=== PATIENT | male | born 1995 | race Caucasian/White ===

== ENCOUNTER 2016-08-10 14:04 | Observation (INO) | payer BC ==
[~2016-08-10] VITALS: Ht 190.5 cm; Wt 80.9 kg
[2016-08-10] MEDS ORDERED: SODIUM CHLORIDE 0.9% 1000ML 1,000 ML IV STA ×2 (14:28)
[2016-08-10] MEDS ORDERED: ONDANSETRON INJ 2 MG/ML 2 ML VIAL IV STA ×2 (14:28→15:30)
[2016-08-10] MEDS: MoRPHine SULFATE 4 MG/ML 1 ML CARP\\VIAL IV PRN ×3 (14:35→16:08)
[2016-08-10 14:37] LABS: BASO % 0.1 %; BASO ABS # 0.01 K/uL (0-0.2); COMPLETE YES; EOS % 0.7 %; HEMATOCRIT 44.1 % (42-52); IG% 0.1 %; LYMPH % 11.1 %; LYMPH ABS # 0.83 K/uL (1.2-3.4); MEAN CELL VOLUME 86.5 fL (80-100); MEAN CORPUSCULAR HEMOGLOBIN 30.4 pg (25-34); MEAN CORPUSCULAR HGB CONC 35.1 g/dl (32-36); MEAN PLATELET VOLUME 9.9 fL (7.4-10.4); PLATELET COUNT 132 K/uL (130-400); WHITE BLOOD COUNT 7.45 K/uL (4.8-10.8)
--- NOTE | 2016-08-10 14:38 | EMERGENCY ROOM VISIT NOTE ---
History Report prepared by Shelbi: Génesis Forrester Under the Supervision of: Dr. Franko Wall D.O. First contact with patient: 14:26 Chief Complaint: ABDOMINAL PAIN Stated Complaint: STOMACH R/O APPENDIX Nursing Triage Summary: Pt presents with lower abd pain that began last night, diaphoretic, n/v. Denies back pain. History of Present Illness The patient is a 21 year old male who presents to the Emergency Room with complaints of abdominal pain. The patient states that he had abdominal pain which began last evening. His pain has slowly become worsen. It is now constant. It is located in the lower abdomen. He also admits having nausea and vomiting. He denies having any diarrhea or fevers. He stopped [facility] initially and was sent to the emergency department for further workup. The patient states his pain is very severe and worsened with any movement. He denies any rectal bleeding or hematemesis. He denies any testicular pain or constipation. He has not had similar pain to this in the past. Source of History: patient Onset: last night Position: abdomen (lower) Timing: constant Modifying Factors (Worsening): movement Associated Symptoms: + nausea, + vomiting, No diarrhea, No fevers Review of Systems See HPI for pertinent positives & negatives. A total of 10 systems reviewed and were otherwise negative. Past Medical & Surgical Medical Problems: (1) No Known Active Medical Problems Family History Patient reports no known family medical history. Social History Smoking Status: Never Smoker Smokeless Tobacco Use: No Alcohol Use: occasionally Marital Status: single Housing Status: lives with roommate Occupation Status: [employer] student Current/Historical Medications Scheduled Calcium Carbonate (Tums), 1-2 TABS PO PRN Allergies Coded Allergies: No Known Allergies (Unverified , 08/10/16) Physical Exam Vital Signs Date Time Temp Pulse Resp B/P Pulse Ox O2 Delivery O2 Flow Rate FiO2 08/10/16 17:26 77 16 148/86 97 08/10/16 16:09 74 16 141/82 100 08/10/16 15:20 63 16 122/70 100 08/10/16 15:19 83 08/10/16 14:09 36.5 77 18 154/85 95 Room Air Physical Exam GENERAL: Patient is awake and alert. He is very anxious and uncomfortable appearing EYES: The conjunctivae are clear. The pupils are round and reactive. EARS, NOSE, MOUTH AND THROAT: The nose is without any evidence of any deformity. Mucous membranes are moist tongue is midline NECK: The neck is nontender and supple. RESPIRATORY: Normal respiratory effort is noted there is no evidence of wheezing rhonchi or rales CARDIOVASCULAR: Regular rate and rhythm noted there no murmurs rubs or gallops normal S1 normal S2 GASTROINTESTINAL: The abdomen is mildly distended. He is diffusely tender in the abdomen with guarding in the right and left lower quadrant. BACK: No midline tenderness or or step-off noted range of motion in flexion extension as well as rotation no signs of muscle spasm noted MUSCULOSKELETAL/EXTREMITIES: There is no evidence of gross deformity full range of motion is noted in the hips and shoulders SKIN: There is no obvious evidence of any rash. Skin is cold and Diaphoretic. There is no edema. NEUROLOGIC: Patient is awake alert and oriented x3. Medical Decision & Procedures ER Provider Diagnostic Interpretation: Radiology results as stated below per my review and radiologist interpretation: CHEST ONE VIEW PORTABLE CLINICAL HISTORY: Abdominal pain and nausea. COMPARISON STUDY: No previous studies for comparison. FINDINGS: Lung volumes are normal. Lungs are clear. There is no pneumothorax or pleural effusion. Cardiac size is normal. Mediastinal contours are normal. There is no evidence of pulmonary edema. IMPRESSION: No acute cardiopulmonary findings. Electronically signed by: Sai Milan M.D. 08/10/2016 2:51 PM Dictated Date/Time: 08/10/2016 2:[address] SCAN OF THE ABDOMEN AND PELVIS WITH IV CONTRAST CLINICAL HISTORY: Vomiting. Lower abdominal pain. COMPARISON STUDY: No priors. TECHNIQUE: Following the IV administration of 116 cc of Optiray 320, CT scan of the abdomen and pelvis is performed from the lung bases to the proximal femora. Images are reviewed in the axial, sagittal, and coronal planes. IV contrast was administered without complication. Automated dose control exposure was utilized. CT DOSE: 284.43 mGy.cm FINDINGS: Lung bases: The heart is normal in size and without pericardial effusion. The lung bases are clear. Liver: The contrast-enhanced liver is normal in size, contour, and attenuation. There is no intrahepatic biliary ductal dilatation. The hepatic veins and portal veins are patent. Gallbladder: Unremarkable. Spleen: The spleen is enlarged, measuring 17.4 cm in length. Pancreas: Unremarkable. Adrenal glands: Unremarkable. Kidneys: The contrast enhanced kidneys are normal in size and without hydronephrosis. The kidneys enhance symmetrically. Abdominal vasculature: The abdominal aorta is normal in course and caliber. Bowel: The small bowel and colon are normal in course and caliber. The appendix is identified in the right lower quadrant above the bladder. The appendix is dilated and fluid-filled measuring up to 1.6 cm in diameter. There are several appendicoliths identified. The largest is seen on image #321. The appearance is consistent with acute appendicitis. Peritoneum: There is free fluid in the pelvis. No intraperitoneal free air is seen. There is a small fat-containing umbilical hernia. Lymphadenopathy: None. Pelvic viscera: The bladder, prostate, and seminal vesicles are normal as visualized. Skeletal structures: No lytic or blastic lesions are seen. IMPRESSION: 1. Findings are consistent with acute appendicitis. Surgical consultation is advised. There is no evidence of intraperitoneal free air or abscess. 2. There is a moderate volume of free fluid in the pelvis. 3. Marked splenomegaly. Electronically signed by: Jeremie Salinas M.D. 08/10/2016 3:55 PM Dictated Date/Time: 08/10/2016 3:50 PM Laboratory Results 08/10/16 14:25 Red Blood Count 5.10, Mean Corpuscular Volume 86.5, Mean Corpuscular Hemoglobin 30.4, Mean Corpuscular Hemoglobin Concent 35.1, Mean Platelet Volume 9.9, Neutrophils (%) (Auto) 81.0, Lymphocytes (%) (Auto) 11.1, Monocytes (%) (Auto) 7.0, Eosinophils (%) (Auto) 0.7, Basophils (%) (Auto) 0.1, Neutrophils # (Auto) 6.03, Lymphocytes # (Auto) 0.83, Monocytes # (Auto) 0.52, Eosinophils # (Auto) 0.05, Basophils # (Auto) 0.01 08/10/16 14:25 Test 08/10/16 14:25 White Blood Count 7.45 K/uL (4.8-10.8) Red Blood Count 5.10 M/uL (4.7-6.1) Hemoglobin 15.5 g/dL (14.0-18.0) Hematocrit 44.1 % (42-52) Mean Corpuscular Volume 86.5 fL (80-100) Mean Corpuscular Hemoglobin 30.4 pg (25-34) Mean Corpuscular Hemoglobin Concent 35.1 g/dl (32-36) Platelet Count 132 K/uL (130-400) Mean Platelet Volume 9.9 fL (7.4-10.4) Neutrophils (%) (Auto) 81.0 % Lymphocytes (%) (Auto) 11.1 % Monocytes (%) (Auto) 7.0 % Eosinophils (%) (Auto) 0.7 % Basophils (%) (Auto) 0.1 % Neutrophils # (Auto) 6.03 K/uL (1.4-6.5) Lymphocytes # (Auto) 0.83 K/uL (1.2-3.4) Monocytes # (Auto) 0.52 K/uL (0.11-0.59) Eosinophils # (Auto) 0.05 K/uL (0-0.5) Basophils # (Auto) 0.01 K/uL (0-0.2) RDW Standard Deviation 39.1 fL (36.4-46.3) RDW Coefficient of Variation 12.3 % (11.5-14.5) Immature Granulocyte % (Auto) 0.1 % Immature Granulocyte # (Auto) 0.01 K/uL (0.00-0.02) Anion Gap 7.0 mmol/L (3-11) Est Creatinine Clear Calc Drug Dose 133.7 ml/min Estimated GFR () 124.1 Estimated GFR (Non- 107.1 BUN/Creatinine Ratio 9.0 (10-20) Calcium Level 9.4 mg/dl (8.5-10.1) Total Bilirubin 0.7 mg/dl (0.2-1) Direct Bilirubin 0.2 mg/dl (0-0.2) Aspartate Amino Transf (AST/SGOT) 24 U/L (15-37) Alanine Aminotransferase (ALT/SGPT) 30 U/L (12-78) Alkaline Phosphatase 76 U/L (45-117) Total Protein 8.2 gm/dl (6.4-8.2) Albumin 4.1 gm/dl (3.4-5.0) Lipase 154 U/L (73-393) Laboratory results per my review. Medications Administered Medications (Trade) Dose Ordered Sig/Bairon Route Start Time Stop Time Status Last Admin Dose Admin Morphine Sulfate (MoRPHine SULFATE INJ) 4 mg Q15M PRN IV 08/10/16 14:30 08/24/16 14:29 08/10/16 16:08 4 MG Ondansetron HCl 4 mg 4 mg NOW STAT IV 08/10/16 14:28 08/10/16 14:29 DC 08/10/16 14:35 4 MG Sodium Chloride 1,000 ml @ 999 mls/hr Q1H1M STAT IV 08/10/16 14:28 08/10/16 15:28 DC 08/10/16 14:28 999 MLS/HR Sodium Chloride (Nss 1000ml) 1,000 ml @ 250 mls/hr Q4H STAT IV 08/10/16 14:28 08/10/16 18:27 08/10/16 15:21 250 MLS/HR Ondansetron HCl (Zofran Inj) 4 mg NOW STAT IV 08/10/16 15:30 08/10/16 15:31 DC 08/10/16 15:32 4 MG ED Course 1426: The patient was evaluated in room A10. A complete history and physical examination were performed. 1428: Sodium Chloride 1,000 ml @ 250 mls/hr IV, Sodium Chloride 1,000 ml @ 999 mls/hr IV, Zofran Inj 4 mg IV, Morphine Sulfate Inj 4 mg IV. 1530: Zofran Inj 4 mg IV. 1601: I discussed the test results with the patient. 1607: I discussed the patient's case with MARY Mcnair - [facility]. The patient will be evaluated for further management. 1629: I reevaluated the patient and discussed the plan for evaluation from the surgeon. 1645: Upon reevaluation, the patient is hemodynamically stable. I discussed results and treatment plan with the patient. He verbalizes agreement and understanding. I spoke with MARY Mcnair of the [facility]. The patient will be evaluated for further management and care. 1716: Promethazine HCl 12.5 mg/ Sodium Chloride 50.5 ml @ 204 mls/hr IV. Medical Decision Prior records/ancillary studies reviewed. Triage Nursing notes reviewed. The patient's history was concerning for abdominal pain. Differential diagnosis: Etiologies such as appendicitis, diverticulitis, PUD, biliary pathology, UTI, pancreatitis, obstruction, mesenteric ischemia, aortic pathology, infections, inflammatory bowel disease, renal colic, as well as others were entertained. The patient is a 21-year-old male who presented to the emergency department for an evaluation of lower abdominal pain. The patient's physical exam appeared to be consistent with an acute surgical abdomen. His white blood cell count was not elevated but he had very significant nausea and vomiting. A CAT scan the abdomen and pelvis was ordered with IV and by mouth contrast but he was not able to tolerate the by mouth contrast. For this reason a CT was changed to only IV contrast. The patient was found have acute appendicitis on CT. I discussed the patient's laboratory and radiographic studies with him. He was treated with IV fluids IV pain medication and IV antiemetics. I discussed his case with the on-call surgical group. They've agreed to evaluate the patient in the emergency department for further management and disposition. Consults Time Called: 1601 Consulting Physician: Maddi Mcnair General Surgery MARY Returned Call: 1607 I discussed the patient's case with MARY Mcnair - [facility]. The patient will be evaluated for further management. Impression Primary Impression: Acute appendicitis Additional Impression: Right lower quadrant abdominal pain Scribe Attestation The scribe's documentation has been prepared under my direction and personally reviewed by me in its entirety. I confirm that the note above accurately reflects all work, treatment, procedures, and medical decision making performed by me. Departure Information Dispostion Being Evaluated By Hospitalist Referrals No Doctor, Assigned (PCP) Problem Qualifiers
[2016-08-10] MEDS ORDERED: OPTIRAY 320 IV PRN (14:45)
--- NOTE | 2016-08-10 14:53 | DIAGNOSTIC IMAGING REPORT ---
CHEST ONE VIEW PORTABLE CLINICAL HISTORY: Abdominal pain and nausea. COMPARISON STUDY: No previous studies for comparison. FINDINGS: Lung volumes are normal. Lungs are clear. There is no pneumothorax or pleural effusion. Cardiac size is normal. Mediastinal contours are normal. There is no evidence of pulmonary edema. IMPRESSION: No acute cardiopulmonary findings. Electronically signed by: Sai Milan M.D. 08/10/2016 2:51 PM Dictated Date/Time: 08/10/2016 2:49 PM
[2016-08-10 14:56] LABS: CALCIUM 9.4 mg/dl (8.5-10.1); POTASSIUM 3.5 mmol/L (3.5-5.1)
[2016-08-10] MEDS ORDERED: CALC500C3 PO (15:42)
--- NOTE | 2016-08-10 15:56 | DIAGNOSTIC IMAGING REPORT ---
CT SCAN OF THE ABDOMEN AND PELVIS WITH IV CONTRAST CLINICAL HISTORY: Vomiting. Lower abdominal pain. COMPARISON STUDY: No priors. TECHNIQUE: Following the IV administration of 116 cc of Optiray 320, CT scan of the abdomen and pelvis is performed from the lung bases to the proximal femora. Images are reviewed in the axial, sagittal, and coronal planes. IV contrast was administered without complication. Automated dose control exposure was utilized. CT DOSE: 284.43 mGy.cm FINDINGS: Lung bases: The heart is normal in size and without pericardial effusion. The lung bases are clear. Liver: The contrast-enhanced liver is normal in size, contour, and attenuation. There is no intrahepatic biliary ductal dilatation. The hepatic veins and portal veins are patent. Gallbladder: Unremarkable. Spleen: The spleen is enlarged, measuring 17.4 cm in length. Pancreas: Unremarkable. Adrenal glands: Unremarkable. Kidneys: The contrast enhanced kidneys are normal in size and without hydronephrosis. The kidneys enhance symmetrically. Abdominal vasculature: The abdominal aorta is normal in course and caliber. Bowel: The small bowel and colon are normal in course and caliber. The appendix is identified in the right lower quadrant above the bladder. The appendix is dilated and fluid-filled measuring up to 1.6 cm in diameter. There are several appendicoliths identified. The largest is seen on image #321. The appearance is consistent with acute appendicitis. Peritoneum: There is free fluid in the pelvis. No intraperitoneal free air is seen. There is a small fat-containing umbilical hernia. Lymphadenopathy: None. Pelvic viscera: The bladder, prostate, and seminal vesicles are normal as visualized. Skeletal structures: No lytic or blastic lesions are seen. IMPRESSION: 1. Findings are consistent with acute appendicitis. Surgical consultation is advised. There is no evidence of intraperitoneal free air or abscess. 2. There is a moderate volume of free fluid in the pelvis. 3. Marked splenomegaly. Electronically signed by: Jeremie Salinas M.D. 08/10/2016 3:55 PM Dictated Date/Time: 08/10/2016 3:50 PM
--- NOTE | 2016-08-10 16:51 | History and Physical: Surg Cnt ---
History & Physical Date Aug 10, 2016. Chief Complaint Abdominal pain, nausea, vomiting History of Present Illness The patient is a 21 year old male who presented to emergency department via taxi cab from [facility] complaining of abdominal pain, nausea, and vomiting that began last evening. States he was in his usual state of health when the abdominal pain (lower abdomen) started last evening and did not improve. Nausea and vomiting started this morning. Had some associated cold chills but no fever. States he has never had this type of pain before. No changes in bowel habits, has not had a bowel movement in 24 hours. Denies of any previous abdominal surgeries. Past Medical/Surgical History Medical Problems: (1) No Known Active Medical Problems Additional History Hepatic Disease: No Endocrine Disorder: No Kidney Disease: No Hypertension: No Heart Disease: No Bleeding Tendencies: No Infectious Diseases: No Allergies Coded Allergies: No Known Allergies (Unverified , 08/10/16) Home Medications Scheduled Calcium Carbonate (Tums), 1-2 TABS PO PRN Physical Examination Skin: warm/dry, no rash Eyes: sclerae normal Head: normocephalic, atraumatic Neck: trachea midline Respiratory/Chest: lungs clear, normal breath sounds, no respiratory distress Cardiovascular: regular rate, rhythm, no murmur Abdomen / GI: normal bowel sounds, + pertinent finding (+tenderness to palpation in the lower abdomen, + McBurneys point. No rigidity. + involuntary and voluntary guardin gin the RLQ) Back: normal inspection Extremities: normal inspection Neurologic/Psych: alert, oriented x [address] SCAN OF THE ABDOMEN AND PELVIS WITH IV CONTRAST CLINICAL HISTORY: Vomiting. Lower abdominal pain. COMPARISON STUDY: No priors. TECHNIQUE: Following the IV administration of 116 cc of Optiray 320, CT scan of the abdomen and pelvis is performed from the lung bases to the proximal femora. Images are reviewed in the axial, sagittal, and coronal planes. IV contrast was administered without complication. Automated dose control exposure was utilized. CT DOSE: 284.43 mGy.cm FINDINGS: Lung bases: The heart is normal in size and without pericardial effusion. The lung bases are clear. Liver: The contrast-enhanced liver is normal in size, contour, and attenuation. There is no intrahepatic biliary ductal dilatation. The hepatic veins and portal veins are patent. Gallbladder: Unremarkable. Spleen: The spleen is enlarged, measuring 17.4 cm in length. Pancreas: Unremarkable. Adrenal glands: Unremarkable. Kidneys: The contrast enhanced kidneys are normal in size and without hydronephrosis. The kidneys enhance symmetrically. Abdominal vasculature: The abdominal aorta is normal in course and caliber. Bowel: The small bowel and colon are normal in course and caliber. The appendix is identified in the right lower quadrant above the bladder. The appendix is dilated and fluid-filled measuring up to 1.6 cm in diameter. There are several appendicoliths identified. The largest is seen on image #321. The appearance is consistent with acute appendicitis. Peritoneum: There is free fluid in the pelvis. No intraperitoneal free air is seen. There is a small fat-containing umbilical hernia. Lymphadenopathy: None. Pelvic viscera: The bladder, prostate, and seminal vesicles are normal as visualized. Skeletal structures: No lytic or blastic lesions are seen. IMPRESSION: 1. Findings are consistent with acute appendicitis. Surgical consultation is advised. There is no evidence of intraperitoneal free air or abscess. 2. There is a moderate volume of free fluid in the pelvis. 3. Marked splenomegaly. Acute Appendicitis with Appendicoliths - afebrile - no leukocytosis - +n/v - CT scan showing dilated appendix measuring 1.6 cm Plan: Plan to take patient to operating room for laparoscopic appendectomy possible open Informed patient of procedure and risks including bleeding, infection, injury to surrounding organs tissues, cardiopulmonary complication, and blood clots. Patient understood and informed consent obtained Continue IV fluids Will be given IV antibiotics pre-op Will be admitted to med/surg floor post op I have discussed this patient with Dr. Bee who is in agreement with the above stated findings and treatment plan. Will evaluate patient directly pre- operatively.
[2016-08-10] MEDS ORDERED: PROMETHAZINE HCL INJ 12.5 MG in SODIUM CHLORIDE 0.9% 50ML 50 ML IV STA (17:16)
[2016-08-10] MEDS ORDERED: CEFOXITIN SOD 2 GM VIAL IV STA (17:56)
[2016-08-10] MEDS ORDERED: ONDANSETRON INJ 2 MG/ML 2 ML VIAL ONE (17:59)
[2016-08-10] MEDS ORDERED: ROCURONIUM BROMIDE 10 MG/ML 5 ML VIAL ONE (17:59)
[2016-08-10] MEDS ORDERED: DEXAMETHASONE SOD INJ 4 MG/ML VIAL ONE (17:59)
[2016-08-10] MEDS ORDERED: LIDOCAINE HCL 2% 2 ML VIAL (20MG/ML) ONE (17:59)
[2016-08-10] MEDS ORDERED: GLYCOPYRROLATE INJ 0.2 MG/ML VIAL ONE (17:59)
[2016-08-10] MEDS ORDERED: NEOSTIGMINE METHYLSULFATE 5 MG/5 ML SYR ONE (17:59)
[2016-08-10] MEDS ORDERED: PROPOFOL IV EMULSION 10 MG/ML 20 ML VIAL IV ONE (17:59)
[2016-08-10] MEDS ORDERED: MIDAZOLAM HCL 1 MG/ML 2ML VIAL ONE (18:00)
[2016-08-10] MEDS ORDERED: FENTANYL CITRATE INJ 50 MCG/1 ML 2 ML VIAL ONE ×2 (18:00→18:39)
[2016-08-10] MEDS ORDERED: BACITRACIN OINT 15 GM TUBE ONE (18:12)
[2016-08-10] MEDS ORDERED: BUPIVACAINE 0.5 % 5 MG/1 ML MPF 30ML VIAL ONE (18:12)
[2016-08-10] MEDS ORDERED: LIDOCAINE HCL 1% 20 ML VIAL ONE (18:12)
[2016-08-10] MEDS ORDERED: CEFOXITIN IV 2,000 MG in DEXTROSE 5% 50ML 50 ML IV SCH (18:15)
--- NOTE | 2016-08-10 18:25 | History & Physical Bridge Note ---
H&P Re-Evaluation Bridge Note: I have examined the patient, reviewed the History & Physical and in the interval since the performance of the History & Physical I have noted the following changes of clinical significance: No changes noted
[2016-08-10] MEDS ORDERED: EpHEDrine SULFATE INJ 50 MG/ML AMP IV PRN (18:45)
[2016-08-10] MEDS ORDERED: ATROPINE SULFATE 0.1 MG/ML 5ML SYR IV PRN (18:45)
[2016-08-10] MEDS ORDERED: HYDROmorphone INJ 1 MG/ML SYR IV PRN (18:45)
[2016-08-10] MEDS ORDERED: FENTANYL CITRATE INJ 50 MCG/1 ML 2 ML VIAL IV PRN (18:45)
[2016-08-10] MEDS ORDERED: DiphenhydrAMINE HCL 50 MG/ML VIAL ONE (18:45)
[2016-08-10] MEDS ORDERED: ONDANSETRON INJ 2 MG/ML 2 ML VIAL IV PRN (18:45)
[2016-08-10] MEDS ORDERED: SUCCINYLCHOLINE CHLORIDE 20 MG/ML 10 ML VIAL IV ONE (19:12)
--- NOTE | 2016-08-10 19:30 | [facility] Post Operative Brief Note ---
Immediate Operative Summary Operative Date Aug 10, 2016. Pre-Operative Diagnosis Acute Appendicitis Post-Operative Diagnosis Acute Appendicitis Procedure(s) Performed Laparoscopic Appendectomy Surgeon Dr. Bee [employer] Principal Surgeon(s) None Estimated Blood Loss 10ml Findings acute appendicitis Fluids (cc crystalloids) 600ml Specimens A. Appendix Drains none Anesthesia general Complication(s) None Disposition Recovery Room / PACU
[2016-08-10] MEDS ORDERED: HYDROmorphone INJ 0.5 MG/0.5 ML SYR IV PRN (19:45)
--- NOTE | 2016-08-10 20:13 | Anesthesiology Progress Note ---
Anesthesia Post Op Note Date & Time Aug 10, 2016 at 20:13 Vital Signs Pain Intensity: 1 Vital Signs Past 12 Hours Date Time Temp Pulse Resp B/P Pulse Ox O2 Delivery O2 Flow Rate FiO2 08/10/16 20:10 36.5 54 16 128/67 100 Room Air 08/10/16 20:00 53 16 132/67 100 Room Air 08/10/16 19:50 55 16 126/70 100 Mask 10 08/10/16 19:40 61 16 133/77 100 Mask 10 08/10/16 19:30 36.3 60 16 128/68 100 Mask 10 08/10/16 18:00 36.7 85 16 136/77 100 Room Air 08/10/16 17:26 77 16 148/86 97 08/10/16 16:09 74 16 141/82 100 08/10/16 15:20 63 16 122/70 100 08/10/16 15:19 83 08/10/16 14:09 36.5 77 18 154/85 95 Room Air Notes Mental Status: alert / awake / arousable, participated in evaluation Pt Amnestic to Procedure: Yes Nausea / Vomiting: adequately controlled Pain: adequately controlled Airway Patency, RR, SpO2: stable & adequate BP & HR: stable & adequate Hydration State: stable & adequate Anesthetic Complications: no major complications apparent
[2016-08-10 20:20] VITALS: BP 124/69; PULSE 56; TEMP 36.8; O2SAT 99; Ht 190.5 cm; Wt 80.9 kg
[2016-08-10] MEDS ORDERED: IV FLUIDS COMPLETED PRN (20:30)
[2016-08-10 20:50] VITALS: BP 115/63; PULSE 56; TEMP 36.7; O2SAT 99
[2016-08-10] MEDS: D5W AND 1/2NSS + 20MEQ KCL 1,000 ML IV SCH (21:27)
[2016-08-10] MEDS: CEFTRIAXONE SOD INJ 1 GM in DEXTROSE 5% ADD-VANTAGE 50ML 50 ML IV SCH (21:27)
[2016-08-10 22:24] VITALS: BP 129/73; PULSE 70; TEMP 36.4; O2SAT 99
[2016-08-10 23:20] VITALS: BP 121/63; PULSE 67; TEMP 36.8; O2SAT 97
--- NOTE | 2016-08-10 23:43 | OPERATIVE REPORT ---
DATE OF OPERATION: 08/10/2016 PREOPERATIVE DIAGNOSIS: Acute appendicitis. POSTOPERATIVE DIAGNOSIS: Same. PROCEDURE: Laparoscopic appendectomy. SURGEON: Dr. Vania Bee. ANESTHESIA: General. ESTIMATED BLOOD LOSS: About 10 mL FINDINGS: Acute appendicitis. COMPLICATIONS: None. INDICATIONS FOR THE PROCEDURE: This is a 21-year-old gentleman who presented to the ED with 1 day history of right lower quadrant pain. The patient had a CT scan confirmed. The patient has a diagnosis of acute appendicitis. The patient will be required to undergo laparoscopic appendectomy, possible open. I did talk to the patient about the benefits, risks, and alternate procedure. I indicated the risks may include but not limited such as bleeding, infection, abscess, incisional hernia, injury to bowel, and even . The patient understands. He signed informed consent and I answered all questions. DETAILS OF PROCEDURE: We brought the patient to the OR, put the patient in supine position. The patient received SCDs on bilateral legs to prevent DVT. Also, the patient received 2 grams cefoxitin IV for prophylactic antibiotic. The patient received general anesthesia without difficulty. The abdomen was prepped and draped in routine sterile fashion. After timeout, I injected local anesthesia just above umbilicus by using 1% lidocaine mixed with 0.25% Marcaine. Then, I made a small incision just above the umbilicus, opened the fascia, opened the peritoneum under direct vision. I put a Jamil trocar in, connected to CO2 to create pneumoperitoneum, flow rate at 6 liter per minute, pressure not more than 14 mmHg. Once we got a nice pneumoperitoneum, we put two 5 mm trocars on the left side lower quadrant. All trocars were put in under direct vision with 10 mm camera. Then, we looked around the abdomen, showed normal findings of the stomach, small-bowel, large bowel, and liver. However, the appendix had significant inflammation, edema, swollen. The diagnosis is correct for acute appendicitis. Once all trocars were in, I put a grasper in to hold the appendix and used Harmonic to take down appendicocele, rechecked, no active bleeding. Then, I passed 45 Endo-MARIN stapler, transected at the base of the appendix, rechecked, no active bleeding, no leak. Then, we removed the appendix through the catch bag. Then, we reinserted Jamil trocar in, connected to CO2 to create pneumoperitoneum again, looked at the abdomen showing no active bleeding, no leak on the staple line. Then, we removed all trocars under direct vision. No active bleeding from trocar sites. No injury to bowel. Then, pneumoperitoneum was released. Then, I closed the umbilical fascial layer with [id number] x2 by using 0 Vicryl, closed subcutaneous layer by using 2-0 Vicryl, closed skin by using 4-0 Vicryl. Then, we closed another 3.5 mm trocar site only by using 4-0 Vicryl. Then, we put the dressing on. The patient tolerated the procedure well, and all instrument, needle and sponge count correct x2 at the end of case. The specimen sent to pathology. The patient transferred to recovery room in stable condition. I attest to the content of the Intraoperative Record and any orders documented therein. Any exceptio ns are noted below.
[2016-08-11 03:15] VITALS: BP 113/65; PULSE 81; TEMP 37.3; O2SAT 94
[2016-08-11 06:56] VITALS: BP 109/64; PULSE 68; TEMP 37.5; O2SAT 98
[2016-08-11 07:30] VITALS: TEMP 36.9
[2016-08-11] MEDS: OXYCODONE/ACETAMINOPHEN 5-325 TAB PO PRN ×2 (07:30→13:35)
[2016-08-11 08:03] LABS: BASO % 0.1 %; BASO ABS # 0.01 K/uL (0-0.2); COMPLETE YES; EOS % 0.1 %; IG% 0.2 %; LYMPH % 12.9 %; LYMPH ABS # 1.36 K/uL (1.2-3.4); MEAN CELL VOLUME 86.6 fL (80-100); MEAN CORPUSCULAR HEMOGLOBIN 29.4 pg (25-34); MEAN PLATELET VOLUME 10.4 fL (7.4-10.4); MONO % 9.7 %; PLATELET COUNT 164 K/uL (130-400); RED BLOOD COUNT 4.62 M/uL (4.7-6.1); WHITE BLOOD COUNT 10.53 K/uL (4.8-10.8)
--- NOTE | 2016-08-11 08:17 | Anesthesiology Progress Note ---
Anesthesia Post Op Note Date & Time Aug 11, 2016 at 08:16 Vital Signs Vital Signs Past 12 Hours Date Time Temp Pulse Resp B/P Pulse Ox O2 Delivery O2 Flow Rate FiO2 08/11/16 07:30 36.9 08/11/16 06:56 37.5 68 16 109/64 98 Room Air 08/11/16 03:15 37.3 81 16 113/65 94 Room Air 08/10/16 23:49 Room Air 08/10/16 23:20 36.8 67 18 121/63 97 Room Air 08/10/16 22:24 36.4 70 16 129/73 99 Room Air 08/10/16 20:50 36.7 56 16 115/63 99 Room Air 08/10/16 20:20 36.8 56 16 124/69 99 Room Air 08/10/16 20:20 Room Air 08/10/16 20:20 99 Room Air 08/10/16 20:20 Room Air Notes Mental Status: alert / awake / arousable, participated in evaluation Pt Amnestic to Procedure: Yes Nausea / Vomiting: adequately controlled Pain: adequately controlled Airway Patency, RR, SpO2: stable & adequate BP & HR: stable & adequate Hydration State: stable & adequate Anesthetic Complications: no major complications apparent
[2016-08-11] MEDS: D5W AND 1/2NSS + 20MEQ KCL 1,000 ML IV SCH (09:21)
[2016-08-11] MEDS: CEFTRIAXONE SOD INJ 1 GM in DEXTROSE 5% ADD-VANTAGE 50ML 50 ML IV SCH (09:22)
[2016-08-11] MEDS ORDERED: OXYC-57 PO (10:31)
--- NOTE | 2016-08-11 10:35 | Discharge Instructions ---
Discharge Instructions Date of Service Aug 11, 2016. Admission Reason for Admission: Acute Appendicitis Discharge Discharge Diagnosis / Problem: status post laparoscopic appendectomy Discharge Goals Goal(s): Decrease discomfort Activity Recommendations Activity Limitations: as noted below No heavy lifting over 10 pounds for 2 weeks No strenuous activity until cleared by Surgeon No driving while taking narcotic pain medication No submerging incisions underwater for 2 weeks . Instructions / Follow-Up Instructions / Follow-Up Walking is encouraged to prevent blood clots You may shower in 3 days, then remove dressings, sponge bath in meantime Follow-up with Dr. Bee or Guerita Fernandez PA-C in office in 1 week Call [phone] to make an appointment Current Hospital Diet Patient's current hospital diet: Clear Liquid Diet Discharge Diet Recommended Diet: Regular Diet Procedures Procedures Performed: Laparoscopic Appendectomy Pending Studies Studies pending at discharge: no Medical Emergencies . Who to Call and When: Medical Emergencies: If at any time you feel your situation is an emergency, please call 911 immediately. . Non-Emergent Contact Non-Emergency issues call your: Primary Care Provider, Surgeon Call Non-Emergent contact if: you have a fever, temperature is above 101.5, your pain is not controlled, your pain is worsening, wound has increased drainage, wound has increased redness, wound has increased pain . "Provider Documentation" section prepared by Guerita Fernandez. . VTE Core Measure Inpt VTE Proph given/why not?: SCD's [place] Drug Monitoring Program Search Results: patient reviewed within database, no issues identified
[2016-08-11 11:20] VITALS: BP 119/71; PULSE 66; TEMP 36.8; O2SAT 97
--- NOTE | 2016-08-11 12:31 | Surgery Progress Note ---
Surgery Progress Note Date of Service Aug 11, 2016. Subjective Post OP Day: 1 + ambulating, + diet, + feeling well, + pain controlled, No SOB, No chest pain, No nausea, No vomiting Objective Vital Signs: Date Time Temp Pulse Resp B/P Pulse Ox O2 Delivery O2 Flow Rate FiO2 08/11/16 11:20 36.8 66 16 119/71 97 Room Air 08/11/16 07:30 36.9 08/11/16 07:25 Room Air 08/11/16 06:56 37.5 68 16 109/64 98 Room Air 08/11/16 03:15 37.3 81 16 113/65 94 Room Air 08/10/16 23:49 Room Air 08/10/16 23:20 36.8 67 18 121/63 97 Room Air 08/10/16 22:24 36.4 70 16 129/73 99 Room Air 08/10/16 20:50 36.7 56 16 115/63 99 Room Air 08/10/16 20:20 36.8 56 16 124/69 99 Room Air 08/10/16 20:20 Room Air 08/10/16 20:20 99 Room Air 08/10/16 20:20 Room Air 08/10/16 20:10 36.5 54 16 128/67 100 Room Air 08/10/16 20:00 53 16 132/67 100 Room Air 08/10/16 19:50 55 16 126/70 100 Mask 10 08/10/16 19:40 61 16 133/77 100 Mask 10 08/10/16 19:30 36.3 60 16 128/68 100 Mask 10 08/10/16 18:00 36.7 85 16 136/77 100 Room Air 08/10/16 17:26 77 16 148/86 97 08/10/16 16:09 74 16 141/82 100 08/10/16 15:20 63 16 122/70 100 08/10/16 15:19 83 08/10/16 14:09 36.5 77 18 154/85 95 Room Air General Appearance: WD/WN, no apparent distress Head: normocephalic, atraumatic Neck: trachea midline Respiratory/Chest: lungs clear, normal breath sounds, no respiratory distress, no accessory muscle use Cardiovascular: regular rate, rhythm, no murmur Abdomen: normal bowel sounds, non distended, soft, + tenderness (appropriate post op) Incision(s): clean, dry (dressings, incisions not inspected) Laboratory Results: Results Past 24 Hours Test 08/10/16 14:25 08/11/16 06:53 Range/Units White Blood Count 7.45 10.53 4.8-10.8 K/uL Red Blood Count 5.10 4.62 4.7-6.1 M/uL Hemoglobin 15.5 13.6 14.0-18.0 g/dL Hematocrit 44.1 40.0 42-52 % Mean Corpuscular Volume 86.5 86.6 80-100 fL Mean Corpuscular Hemoglobin 30.4 29.4 25-34 pg Mean Corpuscular Hemoglobin Concent 35.1 34.0 32-36 g/dl Platelet Count 132 164 130-400 K/uL Mean Platelet Volume 9.9 10.4 7.4-10.4 fL Neutrophils (%) (Auto) 81.0 77.0 % Lymphocytes (%) (Auto) 11.1 12.9 % Monocytes (%) (Auto) 7.0 9.7 % Eosinophils (%) (Auto) 0.7 0.1 % Basophils (%) (Auto) 0.1 0.1 % Neutrophils # (Auto) 6.03 8.11 1.4-6.5 K/uL Lymphocytes # (Auto) 0.83 1.36 1.2-3.4 K/uL Monocytes # (Auto) 0.52 1.02 0.11-0.59 K/uL Eosinophils # (Auto) 0.05 0.01 0-0.5 K/uL Basophils # (Auto) 0.01 0.01 0-0.2 K/uL RDW Standard Deviation 39.1 38.4 36.4-46.3 fL RDW Coefficient of Variation 12.3 12.1 11.5-14.5 % Immature Granulocyte % (Auto) 0.1 0.2 % Immature Granulocyte # (Auto) 0.01 0.02 0.00-0.02 K/uL Sodium Level 139 136-145 mmol/L Potassium Level 3.5 3.5-5.1 mmol/L Chloride Level 104 98-107 mmol/L Carbon Dioxide Level 28 21-32 mmol/L Anion Gap 7.0 3-11 mmol/L Blood Urea Nitrogen 9 7-18 mg/dl Creatinine 1.00 0.60-1.40 mg/dl Est Creatinine Clear Calc Drug Dose 133.7 ml/min Estimated GFR () 124.1 Estimated GFR (Non- 107.1 BUN/Creatinine Ratio 9.0 10-20 Random Glucose 123 70-99 mg/dl Calcium Level 9.4 8.5-10.1 mg/dl Total Bilirubin 0.7 0.2-1 mg/dl Direct Bilirubin 0.2 0-0.2 mg/dl Aspartate Amino Transf (AST/SGOT) 24 15-37 U/L Alanine Aminotransferase (ALT/SGPT) 30 12-78 U/L Alkaline Phosphatase 76 45-117 U/L Total Protein 8.2 6.4-8.2 gm/dl Albumin 4.1 3.4-5.0 gm/dl Lipase 154 73-393 U/L Assessment & Plan POD # 1 s/p laparoscopic appendectomy -vitals stable - No leukocytosis - pain controlled -ambulating and urinating without difficulty - tolerated clear liquids Plan: Discharge home today Discharge instructions given Rx for po Percocet prn pain given Follow-up in office Next Dr. Bee has seen and examined patient, agrees with above stated findings and treatment plan.
[2016-08-11 13:46] VITALS: BP 119/71; PULSE 66; TEMP 36.8; O2SAT 97
--- NOTE | 2016-08-14 12:49 | Discharge Summary ---
Discharge Summary Dates Admission Date / Time: Aug 10, 2016 at 19:33 Discharge Date: Aug 11, 2016 Dispostion / Condition Discharge Disposition: Home Condition at Discharge: Good Principal Diagnosis (1) Acute appendicitis Consultations / Procedures Consultations: None Procedures: Laparoscopic appendectomy Pending Studies / Follow-Up None Medication Reconciliation New Medications: Oxycodone/Acetaminophen 5MG/325MG (Percocet 5MG/325MG) Tab 1 TABLET PO Q4H PRN for Pain, #18 TAB Continued Medications: Calcium Carbonate (Tums) 500 Mg Chew 1-2 TABS PO PRN for Nausea Admission HPI Per the Admitting provider: The patient is a 21 year old male who presented to emergency department via taxi cab on 08/10/2016 from [facility] complaining of abdominal pain, nausea, and vomiting that began the evening prior. Stated he was in his usual state of health when the abdominal pain (lower abdomen) started last evening and did not improve. Nausea and vomiting started that morning. Had some associated cold chills but no fever. Stated he never had this type of pain before. No changes in bowel habits, has not had a bowel movement in 24 hours. Denies of any previous abdominal surgeries. CT scan showed dilated appendix at 1.6 cm. Hospital Course (1) Acute appendicitis Patient underwent laparoscopic appendectomy without any complications. Was transferred to PACU and then med/surg floor in stable condition. Patients diet was advanced to full liquids, IV pain medication, PO Percocet were given for pain as needed and IV Zofran as needed for nausea. POD # 1 : patient's pre-op pain resolved and was just tender from surgery. Ambulating to restroom and urinating without difficulty. No nausea or vomiting. Tolerated liquids for breakfast. [place] good and wanted to go home. Patient was discharged on POD # 1. Overall hospital course was uneventful. Discharge Instructions as given to patient Copies To Primary Care Provider: No Doctor, Assigned.
== END 2016-08-11 15:13 | disposition home or self-care (01) ==
LOC: ENRESERVTM → ENRESERVDT → C.EDB 14:07 → C.MSN 19:33
PROVIDERS: ADMIT Surgery; ATTEND Surgery
DX: K35.80 Unspecified acute appendicitis (principal)